=== PATIENT | female | born 2000 | race Caucasian/White ===

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

== ENCOUNTER 2021-02-13 13:08 | Outpatient (CLI) | payer OTHER ==
[2016-09-24 06:16] VITALS: BMI 26.9
== END 2021-02-13 16:00 | disposition home or self-care (01) ==
LOC: D.LDO 13:08
PROVIDERS: ATTEND Obstetrics & Gynecology
DX: O47.9 False labor, unspecified (principal)

== ENCOUNTER 2021-04-02 05:13 | Inpatient (IN) | payer BC ==
[~2021-04-02] VITALS: Ht 167.6 cm; Wt 79.8 kg
[2021-04-02 05:25] VITALS: BP 107/69; Ht 167.6 cm; Wt 79.8 kg
[2021-04-02 06:08] LABS: HEMATOCRIT 27.1 % (36.0-48.0); HEMOGLOBIN 8.3 g/dL (12-16); MCHC 30.6 g/dL (31.0-37.0); MCV 64.9 fL (80.0-100.0); MEAN PLATELET VOLUME 8.2 fL (7.4-10.4); RBC 4.17 10x6/uL (4.00-5.40); RDW 19.4 % (11.5-14.5)
[2021-04-02 06:14] LABS: MCH 19.8 pg (26.0-34.0)
[2021-04-02 06:15] LABS: UDS - AMPHET NEGATIVE QUAL (NEGATIVE); UDS - BARB NEGATIVE QUAL (NEGATIVE); UDS - BENZO NEGATIVE QUAL (NEGATIVE); UDS - COCAINE NEGATIVE QUAL (NEGATIVE); UDS - OPIATE NEGATIVE QUAL (NEGATIVE); UDS - PCP NEGATIVE QUAL (NEGATIVE); UDS - THC NEGATIVE QUAL (NEGATIVE)
--- NOTE | 2021-04-02 23:21 | NUR ---
TORADOL ADMINISTERED PER EMAR. PUMP SERVICER HELPER INITIATED PER EMAR.
--- NOTE | 2021-04-03 00:01 | NUR ---
JOSE RAFAEL ADMINSITERED PER EMAR.
--- NOTE | 2021-04-03 01:30 | NUR ---
PERICARE DONE, CHUCKS AND PERIPADS CHANGED. FF,MIDLINE 2U. SMALL AMOUNT RUBRA LOCHIA NOTED. ICE WATER PROVIDED. 250 MLS YELLOW URINE EMPTIED FROM BEDSIDE RIBERA DRAINAGE.
--- NOTE | 2021-04-03 03:30 | NUR ---
PT RESTING WITH EYES CLOSED. BREATHING NON LABORED.
--- NOTE | 2021-04-03 05:00 | NUR ---
PT RESTING WITH EYES CLOSED, BREATHING NONLABORED.
--- NOTE | 2021-04-03 06:05 | NUR ---
FF,MIDLINE 1U. SMALL TO MODERATE AMOUNT RUBRA LOCHIA NOTED ON PERIPADS WITH QUARTER SIZED CLOT. PERIPADS CHANGED. RIBERA EMPTIED 400 MLS YELLOW URINE. INCENTIVE SPIROMETER EDUCATION DONE. PT TRIED SPIROMETER WITH GOOD EFFORT.
--- NOTE | 2021-04-03 06:27 | NUR ---
TORADOL ADMINISTERED PER EMAR. ICE WATER PROVIDED.
[2021-04-03 07:02] LABS: BASOPHILS 0.2 % (0-2); EOSINOPHILS 0 % (0-7); HEMOGLOBIN 8.6 g/dL (12-16); MCH 21.2 pg (26.0-34.0); MCHC 30.7 g/dL (31.0-37.0); MEAN PLATELET VOLUME 7.4 fL (7.4-10.4); MONOCYTES 4.5 % (2-11); NEUTROPHILS 88.3 % (40-80); RBC 4.07 10x6/uL (4.00-5.40); RDW 22.4 % (11.5-14.5)
[2021-04-03 07:10] LABS: MCV 68.9 fL (80.0-100.0); PLATELET COUNT 199 10x3/uL (130-400); WBC 16.6 10x3/uL (4.8-10.8)
[2021-04-03 07:31] VITALS: BP 103/59
--- NOTE | 2021-04-03 07:31 | NUR ---
RECEIVD PT LYING IN SEMI-HERZOG'S POSITION IN BED. VSS. HRRR WITHOUT AUDIBLE MURMUR. BBS CLEAR. BS X 4. ABDOMEN SOFT/NON-DISTENDED. PT STATES BELCHING, BUT NOT PASSING GAS BELOW. ABDOMINAL DRESSING DRY WITHOUT DRAINAGE NOTED. FUNDUS FIRM AT U/1. RUBRA LOCHIA SCANT AMT. NO CLOTS NOTED. NEG HOMANS' SIGN. PPP. SCDS ON BLE. PUMP ON. NO EDEMA NOTED TO BLE. PIV OF NS WITH PITOCIN INFUSING AT 125 ML/HR. DILAUDID LESSON INSTRUCTOR PER ORDERS. PIV SITE CLEAR. PT STATES PAIN OF "2" ON 0-10 PAIN SCALE. STATES DILAUDID LESSON INSTRUCTOR RELIEVING PAIN. PERIPAD CHANGED. ICE PACK TO INCISION. RIBERA TO GRAVITY DRAINING CONCENTRATED YELLOW URINE. CLEAR LIQUID DIET SERVED. SR UP X 2. CALL LIGHT IN REACH.
--- NOTE | 2021-04-03 09:00 | NUR ---
PT SITTING UP IN BED. VISITS WITH SO. DENIES PAIN OR NEEDS. STATES NOT PASSING GAS.
--- NOTE | 2021-04-03 10:15 | NUR ---
PT LYING SUPINE IN BED. EYES CLOSED. RESP NON-LABORED. PT NOT DISTURBED TO ALLOW FOR REST. SR UP X 2. CALL LIGHT IN REACH.
--- NOTE | 2021-04-03 12:15 | NUR ---
PT SITTING UP IN BED. CONSUMING CLEAR, LIQUID DIET. TOLERATING WELL. DENIES NEEDS OR C/O.
[2021-04-03 12:35] VITALS: BP 104/64
[2021-04-03 14:11] LABS: BASOPHILS 0.6 % (0-2); EOSINOPHILS 0.1 % (0-7); HEMATOCRIT 26.5 % (36.0-48.0); HEMOGLOBIN 8.2 g/dL (12-16); LYMPHOCYTES 7.9 % (15-50); MCH 21.5 pg (26.0-34.0); MCHC 31.1 g/dL (31.0-37.0); MCV 69.1 fL (80.0-100.0); MEAN PLATELET VOLUME 7.3 fL (7.4-10.4); MONOCYTES 4.3 % (2-11); NEUTROPHILS 87.1 % (40-80); PLATELET COUNT 176 10x3/uL (130-400); RBC 3.83 10x6/uL (4.00-5.40); RDW 22.2 % (11.5-14.5); WBC 14.9 10x3/uL (4.8-10.8)
--- NOTE | 2021-04-03 14:25 | NUR ---
DR OJEDA NOTIFIED OF PT STATUS. ORDERS RECEIVED TO NORMALIZE PATIENT-DC RIBERA, SALINE LOCK IV, PT MAY SHOWER, NORCO 5 AND NORCO 10, IBUPROFEN,
--- NOTE | 2021-04-03 15:20 | NUR ---
PIV CONVERTED TO SALINE LOCK. FLUSHES EASILY WITH 10 ML NS. SITE CLEAR. RIBERA DC'D WITH 1750 ML OF CONCENTRATED YELLOW URINE NOTED IN BAG. PT SITS UP ON SIDE OF BED. PERICARE DONE. PANTIES AND PAD ON. PT AMBULATORY IN ROOM. TOLERATING ACTIVITY WELL.
--- NOTE | 2021-04-03 15:52 | NUR ---
ALLISON STRATTON PROVIDED TO PTNéstor
--- NOTE | 2021-04-03 16:08 | NUR ---
PT SITTING UP IN BED. C/O INCISIONAL PAIN OF "5" ON 0-10 PAIN SCALE. NORCO 10/325 GIVEN PO ORDERED. PT INSTRUCTED ON MED. VERBALIZES UNDERSTANDING.
--- NOTE | 2021-04-03 17:00 | NUR ---
PT SITTING UP IN BED. CONSUMING REGULAR DIET. TOLERATING WELL. STATES PAIN MED RELIEVING PAIN.
--- NOTE | 2021-04-03 18:00 | NUR ---
PT SITTING UP IN BED. EYES CLOSED. RESP NON-LABORED. PT NOT DISTURBED TO ALLOW FOR REST. SR UP X 2. CALL LIGHT IN REACH.
--- NOTE | 2021-04-03 18:20 | NUR ---
DR JIN VISITS WITH PT.
--- NOTE | 2021-04-03 18:26 | NUR ---
PT UP TO BR TO VOID. STEADY GAIT NOTED.
--- NOTE | 2021-04-03 19:00 | NUR ---
REPORT GIVEN BY UZMA SAHU.
--- NOTE | 2021-04-03 19:30 | NUR ---
INTRODUCED SELF TO PT. I TOLD THE PT THAT SHE WOULD BE MOVING OVER TO [facility] IN A LITTLE WHILE. SHE KNOWS AND IS AGREEABLE. HER IS AWAY RIGHT NOW AND WILL TRY TO WAIT UNTIL HE GETS BACK BEFORE I MOVE HER. SKIN IS WARM AND DRY. SHE HAS A LOW TRANSVERSE INCISION THAT IS COVERED WITH A BANDAGE. SHE STILL NEEDS HELP GETTING UP AND DOWN TO THE BATHROOM. SALINE LOCK IS IN HER RIGHT HAND. BLEEDING IS SMALL ACCORDING TO THE PT. FUNDUS IS FIRM. SHE HAS MANY QUESTIONS WHICH WERE ALL ANSWERED. WILL BE FOLLOWING WITH HER LATER.
--- NOTE | 2021-04-03 19:43 | NUR ---
PT AMBULATES BACK TO BED FROM BATHROOM. C/O INCISIONAL PAIN. IBUPROFEN 600 MG GIVEN PO ORDERED. PT INSTRUCTED ON MED. VERBALIZES UNDERSTANDING.
--- NOTE | 2021-04-03 20:45 | NUR ---
PT MOVED TO ROOM 1218. SHE SAYS SHE LIKES THIS ROOM BETTER THAN THE ONE ON L/D. HERE AND BROUGHT FOOD FOR THEM. IS VERY HELPFUL.
--- NOTE | 2021-04-03 21:00 | NUR ---
PT ASKED FOR PAIN MEDS. THIS WAS GIVEIN PER DR. MURILLO. SHE RATES HER PAIN AN 8.
[2021-04-03 22:00] VITALS: BP 107/68; BP 96/58
--- NOTE | 2021-04-04 | NUR ---
PT AWAKE WITH THE BABY. NO C/O OR NEEDS
--- NOTE | 2021-04-04 02:00 | NUR ---
PT IS RESTING QUIETLY WITH HER EYES CLOSED. NO C/O OR NEEDS.
--- NOTE | 2021-04-04 04:04 | NUR ---
PT REQUESTED PAIN MEDS. SHE WAS GIVEN PO MEDS PER DR. MURILLO. SHE IS GOING TO TRY TO GET SOME SLEEP NOW WITH THE BABY IN THE NURSERY. SHE HAS BEEN UP MOST OF THE NIGHT WITH THE BABY.
[2021-04-04 05:00] VITALS: BP 93/59
--- NOTE | 2021-04-04 05:00 | NUR ---
PT RESTING QUIETLY.
--- NOTE | 2021-04-04 06:24 | NUR ---
TRYING TO BREAST FEED THE BABY. NO C/O AT THIS TIME
--- NOTE | 2021-04-04 07:00 | NUR ---
REPORT RECEIVED FROM Aaron SMITH RN.
[2021-04-04 08:13] LABS: RAPID PLASMA REAGIN Non Reactive (Non Reactive)
[2021-04-04 08:30] VITALS: BP 93/52
--- NOTE | 2021-04-04 09:00 | NUR ---
ASSESSMENT COMPLETE. SEE FLOWSHEET. PT REQUESTS PAIN MEDICATION.
--- NOTE | 2021-04-04 09:15 | NUR ---
PRN PAIN MED GIVEN. IV D/C'D;CATHETER INTACT. PT STATES SHE HAS BLISTERS AND 'RAW SKIN' WHERE ABDOMINAL INCISION BANDAGE WAS REMOVED. ONE BLISTER NOTED ON THE RIGHT AND LEFT SIDES OF ABDOMEN WHERE THE EDGE OF THE TAPE HAD BEEN. 2 SMALL ABRASIONS NOTED ON RIGHT SIDE WHERE TAPE HAD BEEN. NO BLEEDING AT THESE SITES. PETROLEUM JELLY APPLIED TO AFFECTED AREAS AND COVERED WITH 4x4 GAUZE. SUPPLIED LEFT WITH PT TO APPLY NEEDED.
--- NOTE | 2021-04-04 10:20 | NUR ---
PT STATES SHE HAS NOT RECEIVED MUCH PAIN RELIEF WITH NORCO. OFFERED MOTRIN TO PT. PT STATES SHE WOULD TAKE THE MOTRIN.
--- NOTE | 2021-04-04 11:33 | NUR ---
PT SITTING UP IN BED FEEDING BABY. PT. STATES GOOD PAIN RELIEF WITH MOTRIN. FRESH WATER GIVEN. NO OTHER NEEDS VOICED AT THIS TIME.
[2021-04-04] MEDS ORDERED: HYDROCODON-ACE1 EA10 PO (13:02)
[2021-04-04] MEDS ORDERED: IBUPROFEN600 MG PO (13:02)
--- NOTE | 2021-04-04 15:19 | NUR ---
REVIEWED DISCHARGE INSTRUCTIONS WITH PT. PT STATES UNDERSTANDING. PRESCRIPTIONS GIVEN. FOLLOW UP APPOINTMENT GIVEN FOR STAPLE REMOVAL ON Friday04/09/21 @ 3:30 PM. PT DISCHARGED HOME VIA WHEELCHAIR TO PRIVATE VEHICLE.
== END 2021-04-04 16:00 | disposition home or self-care (01) | DRG 785 ==
LOC: D.LD 05:13 → D.WS 04-03 20:08
PROVIDERS: ADMIT Obstetrics & Gynecology; ATTEND Obstetrics & Gynecology
PROC: 0UB70ZZ Excision of Bilateral Fallopian Tubes, Open Approach (ICD-10-PCS; 2021-04-02)
PROC: 3E033VJ Introduction of Other Hormone into Peripheral Vein, Percutaneous Approach (ICD-10-PCS; 2021-04-02)
PROC: 10D00Z1 Extraction of Products of Conception, Low, Open Approach (ICD-10-PCS; principal; 2021-04-02 21:30)
DX: O62.1 Secondary uterine inertia (principal); Z37.0 Single live birth; Z3A.39 39 weeks gestation of pregnancy; O99.02 Anemia complicating childbirth; R00.0 Tachycardia, unspecified; D64.9 Anemia, unspecified; Z30.2 Encounter for sterilization